=== PATIENT | male | born 1955 | race Caucasian/White ===

== ENCOUNTER 2017-01-16 12:27 | Emergency (ER) | payer MEDICAID ==
[~2017-01-16] VITALS: Wt 78.6 kg
[2017-01-16] MEDS ORDERED: predniSONE 20 MG TAB PO ONE (13:30)
[2017-01-16 13:35] LABS: ADD SCAN DIFF NO
[2017-01-16 13:46] LABS: BASOPHILS % 0.5 % (0.0-2.0); EOSINOPHILS # 0.1 10^3/ul (0.0-0.5); EOSINOPHILS % 1.6 % (0.0-7.0); HEMATOCRIT 41.4 % (42.0-52.0); HEMOGLOBIN 14.5 g/dl (14.0-18.0); LYMPHOCYTES # 2.4 10^3/ul (0.8-2.9); LYMPHOCYTES % 37.5 % (15.0-51.0); MEAN PLATELET VOLUME 11.2 fl (7.4-10.4); MONOCYTE # 0.3 10^3/ul (0.3-0.9); MONOCYTES % 5.1 % (0.0-11.0); NEUTROPHIL # 3.5 10^3/ul (1.6-7.5); PLATELET COUNT 274 10^3/UL (140-415); RED BLOOD COUNT 4.27 10^6/ul (4.70-6.10); RED CELL DISTRIBUTION WIDTH 12.1 % (11.5-14.5); WHITE BLOOD COUNT 6.3 10^3/ul (4.8-10.8)
[2017-01-16 13:58] LABS: ALBUMIN 4.4 g/dl (3.3-4.9)
[2017-01-16 13:59] LABS: POTASSIUM 4.5 mmol/L (3.5-5.1)
--- NOTE | 2017-01-16 13:59 | RADRPT ---
PROCEDURE: XR Chest. CLINICAL INDICATION: Dizziness. Abdominal pain. TECHNIQUE: Single frontal chest x-ray. COMPARISON: None. FINDINGS: The lungs are clear of acute infiltrates, edema, effusions, or masses.. The cardiomediastinal silho uette is unremarkable. The osseous structures are intact. IMPRESSION: No acute cardiopulmonary disease. RPTAT: GG .Joesph Monroy MD, MD Date Time Electronically viewed and signed by .Joesph Monroy MD, MD on 01/16/2017 13:59 .L/
[2017-01-16 14:01] LABS: ALBUMIN/GLOBULIN RATIO 1.57; BILIRUBIN,INDIRECT 0.1 mg/dl (0-1.1); BILIRUBIN,TOTAL 0.1 mg/dl (0.2-1.3); CREATININE 0.75 mg/dl (0.61-1.24); TOTAL PROTEIN 7.2 g/dl (6.1-8.1)
[2017-01-16 14:02] LABS: CALCIUM 9.3 mg/dl (8.4-10.2)
[2017-01-16] MEDS ORDERED: PRED20TA PO (16:19)
--- NOTE | 2017-01-16 16:23 | ERD ---
ER Documentation Chief Complaint Date/Time DATE: 01/16/17 TIME: 16:20 Chief Complaint Itching HPI This is a 61-year-old male who states that he is itching all over for the past 2 days. He states he feels like there is a virus in his head and skin causing him to itch. He feels like there is bugs in his skin making him itch. Says he has no fever but he does have a cough that is nonproductive he says he has no headache no chest pain or shortness of breath no abdominal pain nausea vomiting but he does have occasional diarrhea. Nonbloody. He has no rash no known new exposures patient states he wants to check to see if there is an infection in blood ROS All systems reviewed and are negative except as per history of present illness. Medications Home Meds Active Scripts Prednisone* (Prednisone*) 20 Mg Tab, 60 MG PO DAILY for 5 Days, TAB Prov:KAUSHIK ANDRADEGIGI Taylor DO 01/16/17 Allergies Allergies: Coded Allergies: No Known Allergy (Unverified , 01/16/17) PMhx/Soc Medical and Surgical Hx: pt denies Medical Hx Hx Alcohol Use: No Hx Substance Use: No Hx Tobacco Use: No Smoking Status: Never smoker FmHx Family History: No coronary disease Physical Exam Vitals Vital Signs Date Time Temp Pulse Resp B/P Pulse Ox O2 Delivery O2 Flow Rate FiO2 01/16/17 12:32 98.8 78 20 172/77 98 Physical Exam Const: Well-developed, well-nourished Head: Atraumatic, normocephalic Eyes: Normal Conjunctiva, PERRLA, EOMI, normal sclera, no nystagmus ENT: Normal External Ears, Nose and Mouth, moist mucus membranes. Neck: Full range of motion. No meningismus, no lymphadenopathy. Resp: Clear to auscultation bilaterally, no wheezing, rhonchi, rales Cardio: Regular rate and rhythm, no murmurs, S1 S2 present Abd: Soft, non tender x 4, non distended. Normal bowel sounds, no guarding or rebound, no pulsitile abdominal masses or bruits Skin: No petechiae or rashes, no ecchymosis , no maculopapular rash Back: No midline or flank tenderness Ext: No cyanosis, or edema, FROM x 4, normal inspection, neurovascularly intact x 4 Neur: Awake and alert, STR 5/5 x 4, sensation intact x 4, no focal findings, cerebellum intact Psych: Normal Mood and Affect Result Diagram: 01/16/17 1330 01/16/17 1330 Results 24 hrs Laboratory Tests Test 01/16/17 13:30 Alanine Aminotransferase (ALT/SGPT) 64IU/L Albumin 4.4g/dl Albumin/Globulin Ratio 1.57 Alkaline Phosphatase 127IU/L Anion Gap 17 Aspartate Amino Transf (AST/SGOT) 26IU/L Basophils # 0.010^3/ul Basophils % 0.5% Blood Urea Nitrogen 11mg/dl Calcium Level 9.3mg/dl Carbon Dioxide Level 28mmol/L Chloride Level 104mmol/L Creatinine 0.75mg/dl Direct Bilirubin 0.00mg/dl Eosinophils # 0.110^3/ul Eosinophils % 1.6% Globulin 2.80g/dl Glucose Level 96mg/dl Hematocrit 41.4% Hemoglobin 14.5g/dl Indirect Bilirubin 0.1mg/dl Lymphocytes # 2.410^3/ul Lymphocytes % 37.5% Mean Corpuscular Hemoglobin 34.0pg Mean Corpuscular Hemoglobin Concent 35.0g/dl Mean Corpuscular Volume 97.0fl Mean Platelet Volume 11.2fl Monocytes # 0.310^3/ul Monocytes % 5.1% Neutrophils # 3.510^3/ul Neutrophils % 55.0% Nucleated Red Blood Cells # 0.010^3/ul Nucleated Red Blood Cells % 0.0/100WBC Platelet Count 51903^3/UL Potassium Level 4.5mmol/L Red Blood Count 4.2710^6/ul Red Cell Distribution Width 12.1% Sodium Level 144mmol/L Total Bilirubin 0.1mg/dl Total Protein 7.2g/dl White Blood Count 6.310^3/ul Current Medications Medications (Trade) Dose Ordered Sig/Yessica Route PRN Reason Start Time Stop Time Status Last Admin Dose Admin Prednisone (Prednisone) 60 mg ONCE ONCE PO 01/16/17 13:30 01/16/17 13:31 DC 01/16/17 13:22 Procedures/MDM EKG: Rate/Rhythm: Normal Sinus Rhythm,NL intervals QRS, ST, QT: NORMAL OR, QRS, QT] Impression: NORMAL EKG ROCEDURE: XR Chest. CLINICAL INDICATION: Dizziness. Abdominal pain. TECHNIQUE: Single frontal chest x-ray. COMPARISON: None. FINDINGS: The lungs are clear of acute infiltrates, edema, effusions, or masses.. The cardiomediastinal silhouette is unremarkable. The osseous structures are intact. IMPRESSION: No acute cardiopulmonary disease. RPTAT: GG .Joesph Monroy MD, MD Date Time Electronically viewed and signed by .Joesph Monroy MD, MD on 01/16/2017 13:59 .L/ CC: BREEZY ANDRADE DO Patient states he feels better after getting prednisone is not itching anymore. Patient might have a psychiatric disorder but he is not acutely psychotic May have a type of allergic reaction so treatment steroids for a few days. No acute process on chest x-ray or blood work Departure Diagnosis: Primary Impression: Chronic pruritus Condition: Stable Patient Instructions: Allergic Reaction, Other (General) BREEZY ANDRADE DO Jan 16, 2017 16:23
[2017-01-16 16:32] VITALS: BP 125/79; PULSE 78; RESP 18
== END 2017-01-16 16:33 | disposition home or self-care (01) ==
LOC: E/R 12:27
DX: L29.9 Pruritus, unspecified (principal); R42 Dizziness and giddiness
CPT/HCPCS: 36415; 71010; 80053; 85025; 93005; J7512; Z7502